=== PATIENT | female | born 1940 | race Caucasian/White ===

== ENCOUNTER → 2017-04-09 | Outpatient (CLI) | payer OTHER ==
[~2017-04-09] MED LIST: ADULT LOW DOSE81 MG PO; ANASTROZOLE1 MG PO; DOXYCYCLINE 10100 MG PO; IPRAT-ALBUT 0.5-3 ML INH; MUCINEX600 MG PO; NEURONTIN 400400 M1 PO; NICOTINE TRANSD21 M1 TRANSDERM; PLAVIX 75 MG TA75 M1 PO; PREDNISONE 10 M10 M1 PO; PREMARIN0.625 MG PO; PRILOSEC 20 MG20 MG PO; PRINIVIL40 MG PO; VERAPAMIL E.R240 M1 PO; VERELAN360 MG PO; ZOCOR 20 MG TAB20 M1 PO; ZOLPIDEM TARTRA10 MG PO; ZOSYN 3.373.375 GM/1 IV
== END ==
LOC: HYPER 04-02 06:57
DX: L89.613 Pressure ulcer of right heel, stage 3 (principal); L97.511 Non-pressure chronic ulcer of other part of right foot limited to breakdown of skin; I70.233 Atherosclerosis of native arteries of right leg with ulceration of ankle; L97.311 Non-pressure chronic ulcer of right ankle limited to breakdown of skin; I70.235 Atherosclerosis of native arteries of right leg with ulceration of other part of foot; I73.9 Peripheral vascular disease, unspecified; I10 Essential (primary) hypertension; E78.5 Hyperlipidemia, unspecified; G62.89 Other specified polyneuropathies; Z72.89 Other problems related to lifestyle; F17.200 Nicotine dependence, unspecified, uncomplicated; Z85.41 Personal history of malignant neoplasm of cervix uteri; Z90.710 Acquired absence of both cervix and uterus

== ENCOUNTER → 2017-05-28 | Outpatient (CLI) | payer OTHER ==
[~2017-05-28] MED LIST changes: -ADULT LOW DOSE81 MG PO; -ANASTROZOLE1 MG PO; -DOXYCYCLINE 10100 MG PO; -IPRAT-ALBUT 0.5-3 ML INH; -MUCINEX600 MG PO; -NEURONTIN 400400 M1 PO; -NICOTINE TRANSD21 M1 TRANSDERM; -PLAVIX 75 MG TA75 M1 PO; -PREDNISONE 10 M10 M1 PO; -ZOLPIDEM TARTRA10 MG PO; -ZOSYN 3.373.375 GM/1 IV
== END ==
LOC: HYPER 07:58
DX: I70.235 Atherosclerosis of native arteries of right leg with ulceration of other part of foot (principal); L97.511 Non-pressure chronic ulcer of other part of right foot limited to breakdown of skin; L89.613 Pressure ulcer of right heel, stage 3; I10 Essential (primary) hypertension; L84 Corns and callosities; E78.5 Hyperlipidemia, unspecified; G62.89 Other specified polyneuropathies; F17.200 Nicotine dependence, unspecified, uncomplicated; Z90.710 Acquired absence of both cervix and uterus; Z85.89 Personal history of malignant neoplasm of other organs and systems

== ENCOUNTER 2017-08-09 11:41 | Inpatient (IN) | payer OTHER ==
[~2017-08-09] VITALS: Ht 162.6 cm; Wt 78.0 kg
--- NOTE | ~2017-08-09 | EKG ---
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: MABEL : 1940 Requested By: Michael Figueroa Order Number: [id number] MD: Juvenal Marin Measurements Intervals [place] Rate: 138 P: 61 ND: 145 QRS: 0 QRSD: 84 T: 94 QT: 269 QTc: 408 Interpretive Statements Sinus tachycardia Low voltage, extremity and precordial leads Baseline wander in lead(s) V3,V6 No previous ECG available for comparison Electronically Signed On 08-12-2017 9:10:10 CDT by Juvenal Marin [email or web address] <ELECTRONICALLY SIGNED> By: Juvenal Marin MD, [facility] 08/12/17909 29 29 Juvenal Marin MD, [facility] /EPI
--- NOTE | ~2017-08-09 | HC ---
[facility] [place] [address] CONSULTATION Name: DHEERAJ DOUGLASS Room #: 356-P ADM IN ..#: [id number] Admission: 08/09/17 Attend Phys: Michael Figueroa MD Discharge: Date of : 39 Report #: [id number] THIS REPORT FOR: //name// CC: Michael Dlaey DATE OF SERVICE: 08/12/2017 PERSONAL PHYSICIAN: Dr. Figueroa. CHIEF COMPLAINT: Left foot surgical wound. HISTORY OF PRESENT ILLNESS: This is a 77-year-old white female with a history of longstanding peripheral arterial disease, who continues to smoke, who 3 days prior to the hospitalization was complaining of increased erythema, warmth and pain in her left first metatarsophalangeal region. The patient presented to the Emergency Department and was noted to have a possible soft tissue abscess there and underwent orthopedic evaluation and subsequent I and D of the left first metatarsophalangeal joint. The patient had this closed primarily. The patient is currently on IV antibiotics. We have now been asked to follow the patient for the surgical wound. The patient denies any other associated wounds at this time. The patient states, however, that she still is continuing to smoke. Her daughter who is in the room is extremely concerned about this and she and I had a prolonged talk greater than 30 minutes in regards to her mother's care and trying to get her off the nicotine at this time. PAST MEDICAL HISTORY: Significant for longstanding history of peripheral arterial disease, cancer of the cervix requiring hysterectomy. She has history of hyperlipidemia and hypertension, hypercholesterolemia, gastroesophageal reflux disease. CURRENT MEDICATIONS: Multiple. I reviewed the patient's medication list. DRUG ALLERGIES: CODEINE. SOCIAL HISTORY: The patient still smokes, which she initially stated was a half a pack of cigarettes daily; however, the daughter states it is probably closer to 1 to 1-1/2 pack of cigarettes daily. The patient drinks at least 1-2 drinks daily. FAMILY HISTORY: Not pertinent to current medical condition. REVIEW OF SYSTEMS: CONSTITUTIONAL: The patient denies actual fevers or chills. NEUROLOGIC: The patient denies numbness, tingling, weakness in arms or legs. EYES: No complaints. [address] [address] CONSULTATION Name: DHEERAJ DOUGLASS Room #: 356-P [facility] IN M.R.#: [id number] Admission: 08/09/17 Attend Phys: Michael Figueroa MD Discharge: Date of : 39 Report #: [id number] ENT: No complaints. CARDIAC: The patient denies chest pain, palpitations or peripheral edema. RESPIRATORY: The patient denies shortness of breath, cough or wheezes. GASTROINTESTINAL: The patient denies nausea, vomiting, abdominal pain. GENITOURINARY: The patient denies urgency or frequency. MUSCULOSKELETAL: The patient has complaints of pain in her left first metatarsophalangeal region. SKIN: There is surgical wound on the left first metatarsophalangeal joint region. PHYSICAL EXAMINATION: VITAL SIGNS: Temperature 36.5, pulse 87, respirations 16, BP 147/66. GENERAL: This is an alert and oriented x 3, well-developed white female who is in no obvious distress. HEENT: Normocephalic, atraumatic. Mucous membranes are somewhat dry. Pupils are round. Sclerae white. NECK: Supple, without JVD. LUNGS: Clear. HEART: Regular. ABDOMEN: Soft, nontender. EXTREMITIES: The patient moves all extremities without difficulty. Evaluation of the bilateral lower extremity reveals 2+ dorsalis pedis and posterior tibial pulse. Please note the patient is now status post angiography with stent placement per Dr. Go. Both feet are warm. Surgical wound on the left first metatarsophalangeal joint region is clean, dry and intact. There is minimal serosanguineous drainage without odor, no signs of overt cellulitis. No other associated ulcerations are noted. Bilateral heels are intact. NEUROLOGIC: Cranial nerves 2-12 grossly intact. Motor and sensory grossly intact. LABORATORY VALUES: White count 8.6, hemoglobin 9.0, albumin is 2.9 and prealbumin is 12.7. IMPRESSION: 1. Surgical wound, left first metatarsophalangeal joint secondary to abscess, overall stable. 2. Peripheral arterial disease. 3. Nicotine abuse. 4. Protein-calorie malnutrition -- moderate with an albumin of 2.9. 5. Generalized debility. PLAN: At this time, we will start Aquacel Ag to the wound site, cover with an ABD and Kerlix and Larry, change this 3 times weekly. We will have her heels elevated with pillows off the bed to protect for any type of heel ulcerations. We will make sure we maximize the patient's protein supplementation for healing. We will utilize physical and occupational therapy as the patient is able for [address] [address] CONSULTATION Name: DHEERAJ DOUGLASS Room #: 356-P ADM IN M.R.#: [id number] Admission: 08/09/17 Attend Phys: Michael Figueroa MD Discharge: Date of : 39 Report #: [id number] strengthening. We will continue all other current medications and continue to follow the patient. I appreciate the ability to consult. <ELECTRONICALLY SIGNED> By: Romulo Chou MD 08/16/17 0807 1330 1842 Romulo Chou MD /nt
--- NOTE | ~2017-08-09 | HC ---
[facility] [place] [address] CONSULTATION Name: DHEERAJ DOUGLASS Room #: 356-P [facility] IN ..#: [id number] Admission: 08/09/17 Attend Phys: Michael Figueroa MD Discharge: Date of : 39 Report #: [id number] THIS REPORT FOR: //name// CC: Michael Daley TYPE OF REPORT: Infectious diseases consultation. REASON FOR CONSULTATION: I was asked to evaluate concerning sepsis and right foot infection. HISTORY OF PRESENT ILLNESS: The patient is a 77-year old with underlying peripheral vascular disease. She has had a callus to the plantar aspect of her left foot under the metatarsal since the first of the year. She did seek wound care evaluation. Treated topically and it improved. She still has a callus to this area. She also has peripheral vascular disease and has multiple stents in her lower extremities. In April, she had a stent placed in the proximal thigh. She did return in followup but was unable to see Dr. Go about 3 weeks ago. She has not followed up since. She is a smoker of cigarettes. Three days ago, she noticed increased pain, swelling, erythema involving her right foot. Pain mostly is over the first metatarsal head plantar surface. No drainage. No documented fever or chills. She has been generally weak. PAST MEDICAL HISTORY: Cervical cancer, hypertension, peripheral neuropathy, basal cell skin cancer, hyperlipidemia, gastroesophageal reflux and peripheral vascular disease. ALLERGIES: CODEINE. MEDICATIONS: Plavix, Zocor, verapamil and lisinopril. FAMILY HISTORY: Noncontributory. SOCIAL HISTORY: Smoker of cigarettes daily alcohol intake. REVIEW OF SYSTEMS: Denies any headache, cough, sputum, nausea, vomiting, diarrhea, dysuria or frequency. PHYSICAL EXAMINATION: VITAL SIGNS: Temperature is 100.5, pulse 94 and blood pressure 113/38. She was on room air 95% saturation. GENERAL: She is alert and cooperative. HEENT: Unremarkable. NECK: Supple. CHEST: Clear. HEART: Regular, without murmur. ABDOMEN: Soft and nontender. No pulsatile masses. No hepatosplenomegaly. [facility] [address] [place] [address] CONSULTATION Name: DHEERAJ DOUGLASS Room #: 356-P [facility] IN M.R.#: [id number] Admission: 08/09/17 Attend Phys: Michael Figueroa MD Discharge: Date of : 39 Report #: [id number] EXTREMITIES: Pulses in the groins were normal. She had decreased pulses in the left popliteal and feet. She had marked tenderness under her callus to the plantar aspect of her first metatarsal head on the left. This was exquisitely tender. She had some fluctuance. Erythema extended dorsally to involve the whole foot and ankle and the distal aspect of her lower leg. She had full movement in the leg and foot. LABORATORY DATA: Lactate 1.5. CRP 325. Sodium 134, potassium 3.5, bicarbonate 29 and creatinine 1.2. Liver function test normal. Albumin at 2.8. Hemoglobin 9.7; WBC 18 and platelet count 195,000. Differential: 83% segs, 7% lymphs and 8% monocytes. RADIOLOGICAL DATA: X-ray of her foot showed soft tissue swelling with gas in the soft tissues involving the first metatarsal region. IMPRESSION: A 77-year old with soft tissue infection of the left foot with associated gas suspecting a possible necrotizing soft tissue infection. She also has peripheral vascular disease and I am concerned about the status of her stent. She has leukocytosis. RECOMMENDATIONS: Have obtained blood cultures. We will have Orthopedic Surgery evaluate for surgical debridement. She will remain n.p.o. Give IV fluids. Image her arterial system by ultrasound and arrange for MRI scan. We will use combination antimicrobial therapy. I have discussed with attending and nursing staff at the bedside. <ELECTRONICALLY SIGNED> By: Khari Estrada MD 08/10/17 1043 1454 2118 Khari Estrada MD /nt
--- NOTE | ~2017-08-09 | O ---
[facility] [place] [address] OPERATIVE REPORT Name: DHEERAJ DOUGLASS Room #: 356-P [facility] IN ..#: [id number] Admission: 08/09/17 Attend Phys: Michael Figueroa MD Discharge: Date of : 39 Report #: [id number] THIS REPORT FOR: //name// CC: Michael Daley DATE OF SERVICE: 08/10/2017 PREOPERATIVE DIAGNOSIS: Left great toe abscess, possible septic metatarsophalangeal joint. POSTOPERATIVE DIAGNOSIS: Left great toe soft tissue abscess. PROCEDURE: I and D, left great toe including the first MTP joint. SURGEON: Leobardo Smith MD. SENIOR SECURITY ENGINEER: Marie Johnson PA-C. ANESTHESIA: LMA. TOURNIQUET TIME: Approximately 18 minutes. COMPLICATIONS: None. SPECIMENS: Cultures were sent x 2. CONDITION UPON LEAVING THE OPERATING ROOM: Stable. INDICATIONS FOR PROCEDURE: The patient is a 77-year-old female who has had swelling and erythema of her left great toe for about 2 days. She presented to the ER with x-ray showing gas in the soft tissues and signs of infection of the left great toe. She had an MRI scan showing her to have a soft tissue abscess as well as effusion of the first MTP joint. After discussion with her, she elected for I and D of the left great toe. DESCRIPTION OF PROCEDURE: Risks, benefits, alternatives, complications were discussed in detail with the patient including but not limited to risk of anesthesia, risk of damage to nerves, arteries, blood vessels, risk for continued infection, bleeding and need for reoperation. Informed consent was obtained from the patient. Left foot was appropriately marked in the preoperative holding area. She was already on preoperative Zosyn and vancomycin. She was brought to the operating room and placed in the supine position on the operating room table. LMA anesthesia was induced without complication. Tourniquet was placed on the left calf. Left lower extremity was prepped and draped in normal sterile fashion. Timeout was performed properly [address] [address] OPERATIVE REPORT Name: DHEERAJ DOUGLASS Room #: 356-P [facility] IN .R.#: [id number] Admission: 08/09/17 Attend Phys: Michael Figueroa MD Discharge: Date of : 39 Report #: [id number] identifying the patient and procedure as well as the instrumentation. All in the operating room were in agreement. Left lower extremity was elevated, tourniquet was inflated. Tourniquet time 18 minutes. A direct medial approach to the great toe was made with a 10 blade through the skin. Upon entering the deep tissues, a large amount of purulence was expressed coming from the plantar surface of the foot. Cultures of this were taken x 2. This is foul smelling. The hemostat was used to open up any loculations, and these were broken apart. A 15 blade was then used to open the first MTP joint and upon opening this, there appeared to be normal appearing joint fluid. The foot, plantar surface of the toe was then thoroughly irrigated with normal saline. There was some epidermolysis of the plantar surface of the great toe, which was peeled off and while this was peeled, the ulceration on the plantar surface was removed, leaving a hole directly communicating into the area of the abscess. After thorough irrigation, the incision was closed with 3-0 nylon. Soft dressing of Xeroform, 4 x 4s, Webril, Larry wrap were applied. The patient tolerated this procedure well and went to the recovery room under care of Anesthesia postoperatively. <ELECTRONICALLY SIGNED> By: Leobardo Smith MD 08/12/17 1505 0941 1054 Leobardo Smith MD /nt
[2017-08-09 11:42] VITALS: BP 113/38
[2017-08-09] MEDS ORDERED: DOXYCYCLINE 10100 MG PO (13:03)
[2017-08-09] MEDS ORDERED: PLAVIX 75 MG TA75 M1 PO (13:11)
[2017-08-09 13:38] LABS: BASOPHILS 0.6 % (0.0-2.0); HEMATOCRIT 29.2 % (37.0-47.0); HEMOGLOBIN 9.7 gm/dL (12.0-15.0); LYMPHOCYTES 7.5 % (24.0-44.0); MCH 26.5 pg (26.0-34.0); MCHC 33.1 g/dL (28.0-37.0); MONOCYTES 8.1 % (1.0-8.0); PLATELET COUNT 195 thou/uL (150-400); POLYS 83.8 % (36.0-66.0); RBC 3.66 mil/uL (4.20-5.00); RDW 17.8 % (10.5-14.5)
[2017-08-09 13:45] LABS: CALCIUM 8.3 mg/dL (8.5-10.1); CREATININE 1.2 mg/dL (0.6-1.0); POTASSIUM 3.5 mmol/L (3.5-5.1)
[2017-08-09 13:50] LABS: ALBUMIN 2.8 g/dL (3.4-5.0); TOTAL BILIRUBIN 0.5 mg/dL (<0.1-1.0); TOTAL PROTEIN 6.4 g/dL (6.4-8.2)
[2017-08-09 14:28] VITALS: BP 113/38
[2017-08-09 15:32] VITALS: BP 106/70
[2017-08-09 15:46] VITALS: BP 107/47
[2017-08-09 15:50] LABS: ALBUMIN 2.9 g/dL (3.4-5.0); TOTAL PROTEIN 6.6 g/dL (6.4-8.2)
[2017-08-09 16:18] LABS: TSH 0.851 uIU/mL (0.358-3.740)
[2017-08-09] MEDS ORDERED: ZOLPIDEM TARTRA10 MG PO (17:32)
[2017-08-09] MEDS ORDERED: NEURONTIN 400400 M1 PO (17:34)
[2017-08-09 19:20] VITALS: BP 103/30
[2017-08-09 19:51] LABS: BE(vivo) -3.6 mmol/L (-2 to +3); HCO3 18.8 mmol/L (22.0-26.0); PCO2 25.7 mmHg (35.0-45.0); PO2 77.7 mmHg (80.0-100.0); pH 7.482 (7.360-7.450); sO2 96.5 % (92.0-98.0)
[2017-08-09 22:27] VITALS: BP 100/39
[2017-08-10] VITALS (9 sets, daily range): BP systolic 86–137; BP diastolic 40–92
[2017-08-10 07:23] LABS: ABSOLUTE NEUTROPHILS 8.8 thou/uL (1.4-8.2); BASOPHILS 0.1 % (0.0-2.0); HEMATOCRIT 27.1 % (37.0-47.0); HEMOGLOBIN 9.1 gm/dL (12.0-15.0); LYMPHOCYTES 1.5 % (24.0-44.0); MCHC 33.7 g/dL (28.0-37.0); PLATELET COUNT 145 thou/uL (150-400); POLYS 97.4 % (36.0-66.0); RBC 3.38 mil/uL (4.20-5.00); RDW 17.4 % (10.5-14.5); WBC 9.1 thou/uL (4.0-11.0)
[2017-08-10 07:37] LABS: CALCIUM 7.4 mg/dL (8.5-10.1); CREATININE 1.4 mg/dL (0.6-1.0); MAGNESIUM 1.6 mg/dL (1.8-2.4); POTASSIUM 3.6 mmol/L (3.5-5.1)
[2017-08-11 01:20] VITALS: BP 119/62
[2017-08-11 03:30] VITALS: BP 134/56
[2017-08-11 04:14] LABS: ABSOLUTE NEUTROPHILS 4.4 thou/uL (1.4-8.2); BASOPHILS 0.4 % (0.0-2.0); EOSINOPHILS 0.3 % (0.0-3.0); HEMATOCRIT 31.7 % (37.0-47.0); HEMOGLOBIN 10.3 gm/dL (12.0-15.0); LYMPHOCYTES 19.1 % (24.0-44.0); MCH 26.5 pg (26.0-34.0); MCHC 32.6 g/dL (28.0-37.0); MCV 81.2 fL (80.0-100.0); MONOCYTES 8.7 % (1.0-8.0); PLATELET COUNT 136 thou/uL (150-400); POLYS 71.5 % (36.0-66.0); RDW 17.5 % (10.5-14.5); WBC 6.1 thou/uL (4.0-11.0)
[2017-08-11 04:25] LABS: CALCIUM 7.3 mg/dL (8.5-10.1); CREATININE 1.2 mg/dL (0.6-1.0); MAGNESIUM 1.5 mg/dL (1.8-2.4); POTASSIUM 3.4 mmol/L (3.5-5.1)
[2017-08-11 07:29] VITALS: BP 141/55
[2017-08-11 11:55] VITALS: BP 135/53
[2017-08-11 16:00] VITALS: BP 146/66
[2017-08-11 19:58] VITALS: BP 156/72
[2017-08-12 00:49] VITALS: BP 145/65
[2017-08-12 05:05] VITALS: BP 139/63
[2017-08-12 05:48] LABS: HEMATOCRIT 27.5 % (37.0-47.0); MCH 26.1 pg (26.0-34.0); MCHC 32.6 g/dL (28.0-37.0); RBC 3.44 mil/uL (4.20-5.00); RDW 17.2 % (10.5-14.5); WBC 8.6 thou/uL (4.0-11.0)
[2017-08-12 06:08] LABS: CALCIUM 7.6 mg/dL (8.5-10.1); CREATININE 0.8 mg/dL (0.6-1.0); MAGNESIUM 1.8 mg/dL (1.8-2.4); POTASSIUM 3.5 mmol/L (3.5-5.1)
[2017-08-12 07:06] VITALS: BP 143/58
[2017-08-12 16:08] VITALS: BP 127/64
[2017-08-12 20:40] VITALS: BP 137/47
[2017-08-13 00:15] VITALS: BP 131/53
[2017-08-13 05:00] VITALS: BP 129/58
[2017-08-13 05:50] LABS: HEMATOCRIT 23.8 % (37.0-47.0); HEMOGLOBIN 8.3 gm/dL (12.0-15.0); MCH 27.3 pg (26.0-34.0); MCHC 34.8 g/dL (28.0-37.0); MCV 78.3 fL (80.0-100.0); RBC 3.04 mil/uL (4.20-5.00); RDW 17.9 % (10.5-14.5); WBC 9.4 thou/uL (4.0-11.0)
[2017-08-13 05:59] LABS: CALCIUM 7.7 mg/dL (8.5-10.1); CREATININE 0.8 mg/dL (0.6-1.0); MAGNESIUM 1.7 mg/dL (1.8-2.4); POTASSIUM 3.3 mmol/L (3.5-5.1)
[2017-08-13 07:58] VITALS: BP 132/56
[2017-08-13 11:36] VITALS: BP 126/54
[2017-08-13 15:14] VITALS: BP 133/56
[2017-08-13 19:27] VITALS: BP 136/47
[2017-08-14 03:09] VITALS: BP 136/47
[2017-08-14 08:29] VITALS: BP 147/66
[2017-08-14 13:02] VITALS: BP 135/49
[2017-08-14 17:34] VITALS: BP 141/61
[2017-08-14 20:00] VITALS: BP 149/51
[2017-08-15 04:15] VITALS: BP 137/62
[2017-08-15 05:38] LABS: HEMATOCRIT 23.3 % (37.0-47.0); HEMOGLOBIN 7.7 gm/dL (12.0-15.0); MCH 26.1 pg (26.0-34.0); MCHC 33.2 g/dL (28.0-37.0); MCV 78.6 fL (80.0-100.0); RBC 2.96 mil/uL (4.20-5.00); WBC 14.6 thou/uL (4.0-11.0)
[2017-08-15 06:04] LABS: CALCIUM 8.2 mg/dL (8.5-10.1); POTASSIUM 3.2 mmol/L (3.5-5.1)
[2017-08-15 09:40] VITALS: BP 161/78
[2017-08-15 12:21] VITALS: BP 143/80
[2017-08-15] MEDS ORDERED: ANASTROZOLE1 MG PO (16:22)
[2017-08-15 17:19] VITALS: BP 172/74
[2017-08-15 19:55] VITALS: BP 167/80
[2017-08-16 07:02] LABS: HEMOGLOBIN 7.8 gm/dL (12.0-15.0); MCH 26.1 pg (26.0-34.0); MCHC 32.4 g/dL (28.0-37.0); MCV 80.7 fL (80.0-100.0); RBC 2.97 mil/uL (4.20-5.00); RDW 18.1 % (10.5-14.5); WBC 14.6 thou/uL (4.0-11.0)
[2017-08-16 07:12] LABS: CALCIUM 8.3 mg/dL (8.5-10.1); CREATININE 0.9 mg/dL (0.6-1.0); POTASSIUM 3.4 mmol/L (3.5-5.1)
[2017-08-16 07:50] VITALS: BP 143/68
[2017-08-16 12:41] VITALS: BP 150/66
[2017-08-16] MEDS ORDERED: IPRAT-ALBUT 0.5-3 ML INH (14:47)
[2017-08-16] MEDS ORDERED: ZOSYN 3.373.375 GM/1 IV (14:47)
[2017-08-16] MEDS ORDERED: ADULT LOW DOSE81 MG PO (14:48)
[2017-08-16] MEDS ORDERED: NICOTINE TRANSD21 M1 TRANSDERM (14:48)
[2017-08-16] MEDS ORDERED: PREDNISONE 10 M10 M1 PO (14:49)
[2017-08-16] MEDS ORDERED: MUCINEX600 MG PO (14:49)
[2017-08-16 16:03] VITALS: BP 160/51
== END 2017-08-16 17:14 | DRG 853 ==
LOC: ER 11:41 → EROBS 13:55 → 3W 13:55
PROVIDERS: Emergency Medicine; Hospitalist; Internal Medicine; Specialist
DX: A41.9 Sepsis, unspecified organism (principal); M72.6 Necrotizing fasciitis; E44.0 Moderate protein-calorie malnutrition; L02.612 Cutaneous abscess of left foot; L03.116 Cellulitis of left lower limb; M00.9 Pyogenic arthritis, unspecified; N17.9 Acute kidney failure, unspecified; E87.1 Hypo-osmolality and hyponatremia; J44.1 Chronic obstructive pulmonary disease with (acute) exacerbation; I10 Essential (primary) hypertension; G62.9 Polyneuropathy, unspecified; E78.00 Pure hypercholesterolemia, unspecified; K21.9 Gastro-esophageal reflux disease without esophagitis; E78.5 Hyperlipidemia, unspecified; F17.210 Nicotine dependence, cigarettes, uncomplicated; R19.7 Diarrhea, unspecified; E87.6 Hypokalemia; E83.42 Hypomagnesemia; Z79.82 Long term (current) use of aspirin; Z79.899 Other long term (current) drug therapy; Z85.41 Personal history of malignant neoplasm of cervix uteri; Z88.6 Allergy status to analgesic agent; Z90.710 Acquired absence of both cervix and uterus; Z68.29 Body mass index [BMI] 29.0-29.9, adult
CPT/HCPCS: 10779; 27000; 50101; 50386; 53078; 56525; 57091; 70005

== ENCOUNTER → 2017-09-10 | Outpatient (CLI) | payer OTHER ==
[~2017-09-10] MED LIST changes: +ADULT LOW DOSE81 MG PO; +ANASTROZOLE1 MG PO; +DOXYCYCLINE 10100 MG PO; +IPRAT-ALBUT 0.5-3 ML INH; +MUCINEX600 MG PO; +NEURONTIN 400400 M1 PO; +NICOTINE TRANSD21 M1 TRANSDERM; +PLAVIX 75 MG TA75 M1 PO; +PREDNISONE 10 M10 M1 PO; +ZOLPIDEM TARTRA10 MG PO; +ZOSYN 3.373.375 GM/1 IV
== END ==
LOC: HYPER
DX: T81.89XA Other complications of procedures, not elsewhere classified, initial encounter (principal); I10 Essential (primary) hypertension; E78.5 Hyperlipidemia, unspecified; L84 Corns and callosities; G62.89 Other specified polyneuropathies; F17.200 Nicotine dependence, unspecified, uncomplicated; Z85.89 Personal history of malignant neoplasm of other organs and systems; Z90.710 Acquired absence of both cervix and uterus; Z98.49 Cataract extraction status, unspecified eye; Y92.89 Other specified places as the place of occurrence of the external cause; Y83.8 Other surgical procedures as the cause of abnormal reaction of the patient, or of later complication, without mention of misadventure at the time of the procedure

== ENCOUNTER → 2017-11-04 | Outpatient (CLI) | payer OTHER | LOC: HYPER 07:17 | DX: T81.31XD Disruption of external operation (surgical) wound, not elsewhere classified, subsequent encounter (principal); L84 Corns and callosities; I10 Essential (primary) hypertension; E78.5 Hyperlipidemia, unspecified; G62.89 Other specified polyneuropathies; F17.200 Nicotine dependence, unspecified, uncomplicated; Z85.41 Personal history of malignant neoplasm of cervix uteri; Y83.8 Other surgical procedures as the cause of abnormal reaction of the patient, or of later complication, without mention of misadventure at the time of the procedure ==

== ENCOUNTER → 2017-11-19 | Outpatient (CLI) | payer OTHER | LOC: HYPER 07:01 | DX: T81.31XD Disruption of external operation (surgical) wound, not elsewhere classified, subsequent encounter (principal); L84 Corns and callosities; E78.5 Hyperlipidemia, unspecified; G62.89 Other specified polyneuropathies; I10 Essential (primary) hypertension; F17.200 Nicotine dependence, unspecified, uncomplicated; Z85.41 Personal history of malignant neoplasm of cervix uteri; Y83.8 Other surgical procedures as the cause of abnormal reaction of the patient, or of later complication, without mention of misadventure at the time of the procedure ==

== ENCOUNTER 2018-01-28 01:00 | Emergency (ER) | payer OTHER ==
[~2018-01-28] VITALS: Ht 162.6 cm; Wt 68.5 kg
[2018-01-28] MEDS ORDERED: LASIX 20 MG TAB20 MG PO (01:23)
[2018-01-28] MEDS ORDERED: LEXAPRO 10 MG T10 M2 PO (01:23)
[2018-01-28 03:00] VITALS: BP 127/49
== END 2018-01-28 03:41 | disposition home or self-care (01) ==
LOC: ER 01:00
DX: S01.01XA Laceration without foreign body of scalp, initial encounter (principal); I10 Essential (primary) hypertension; E78.00 Pure hypercholesterolemia, unspecified; K21.9 Gastro-esophageal reflux disease without esophagitis; Z85.828 Personal history of other malignant neoplasm of skin; Z85.41 Personal history of malignant neoplasm of cervix uteri; Z88.5 Allergy status to narcotic agent; W10.9XXA Fall (on) (from) unspecified stairs and steps, initial encounter; Y93.89 Activity, other specified; Y92.89 Other specified places as the place of occurrence of the external cause; Y99.8 Other external cause status

== ENCOUNTER → 2018-07-21 | Outpatient (CLI) | payer OTHER ==
[~2018-07-21] MED LIST changes: +LASIX 20 MG TAB20 MG PO; +LEXAPRO 10 MG T10 M2 PO
== END ==
LOC: HYPER 06:52
DX: L97.521 Non-pressure chronic ulcer of other part of left foot limited to breakdown of skin (principal); L84 Corns and callosities; I10 Essential (primary) hypertension; G47.00 Insomnia, unspecified; G60.3 Idiopathic progressive neuropathy; E78.5 Hyperlipidemia, unspecified; F17.200 Nicotine dependence, unspecified, uncomplicated; Z85.41 Personal history of malignant neoplasm of cervix uteri

== ENCOUNTER → 2018-07-30 | Outpatient (CLI) | payer OTHER | LOC: HYPER 06:52 | DX: L97.528 Non-pressure chronic ulcer of other part of left foot with other specified severity (principal); G60.3 Idiopathic progressive neuropathy; I10 Essential (primary) hypertension; E78.5 Hyperlipidemia, unspecified; F17.200 Nicotine dependence, unspecified, uncomplicated; Z85.41 Personal history of malignant neoplasm of cervix uteri; Z79.01 Long term (current) use of anticoagulants ==

== ENCOUNTER → 2019-07-03 | Outpatient (CLI) | payer OTHER | LOC: SJCVCIMAG 09:30 | DX: I65.23 Occlusion and stenosis of bilateral carotid arteries (principal); I70.203 Unspecified atherosclerosis of native arteries of extremities, bilateral legs; I10 Essential (primary) hypertension; E78.00 Pure hypercholesterolemia, unspecified; Z95.828 Presence of other vascular implants and grafts ==

== ENCOUNTER → 2019-07-13 | Outpatient (CLI) | payer OTHER ==
[~2019-07-13] VITALS: Ht 162.6 cm; Wt 70.3 kg
[~2019-07-13] MED LIST changes: +ALPRAZOLAM 0.0.25 M1 PO; +COMBIVENT INH; +DULOXETINE HCL60 MG PO; +MYRBETRIQ25 MG PO; +PERCOCET 5-3251 EACH PO; +ROSUVASTATIN CA20 MG PO
[2019-07-13 09:27] LABS: HEMATOCRIT 38.9 % (37.0-47.0); HEMOGLOBIN 12.8 gm/dL (12.0-15.0); MCH 30.1 pg (26.0-34.0); MCV 91.3 fL (80.0-100.0); RBC 4.26 mil/uL (4.20-5.00); RDW 14.1 % (10.5-14.5); WBC 8.6 thou/uL (4.0-11.0)
[2019-07-13 09:41] LABS: CALCIUM 8.9 mg/dL (8.5-10.1); POTASSIUM 4.2 mmol/L (3.5-5.1)
[2019-07-13 09:46] VITALS: BP 123/54
== END | disposition home or self-care (01) ==
LOC: CATH 08:06
PROVIDERS: Nuclear Medicine Nuclear Cardiology
DX: I70.213 Atherosclerosis of native arteries of extremities with intermittent claudication, bilateral legs (principal); T82.856A Stenosis of peripheral vascular stent, initial encounter; I70.1 Atherosclerosis of renal artery; I10 Essential (primary) hypertension; I70.0 Atherosclerosis of aorta; E78.00 Pure hypercholesterolemia, unspecified; G62.9 Polyneuropathy, unspecified; K21.9 Gastro-esophageal reflux disease without esophagitis; Z98.890 Other specified postprocedural states; Z79.899 Other long term (current) drug therapy; Z85.828 Personal history of other malignant neoplasm of skin; Z87.891 Personal history of nicotine dependence; Z90.710 Acquired absence of both cervix and uterus; Z82.49 Family history of ischemic heart disease and other diseases of the circulatory system; Z85.3 Personal history of malignant neoplasm of breast; Z88.8 Allergy status to other drugs, medicaments and biological substances

== ENCOUNTER → 2019-07-20 | Outpatient (CLI) | payer OTHER ==
[~2019-07-20] VITALS: Ht 162.6 cm; Wt 70.3 kg
[~2019-07-20] MED LIST changes: +LIPITOR 20 MG T20 M1 PO; +VITAMIN D-40010 MCG PO
[2019-07-20 07:19] VITALS: BP 121/60
== END | disposition home or self-care (01) ==
LOC: CATH 06:42
PROVIDERS: ATTEND Nuclear Medicine Nuclear Cardiology
DX: I70.213 Atherosclerosis of native arteries of extremities with intermittent claudication, bilateral legs (principal); I70.1 Atherosclerosis of renal artery; I25.10 Atherosclerotic heart disease of native coronary artery without angina pectoris; I10 Essential (primary) hypertension; E78.00 Pure hypercholesterolemia, unspecified; K21.9 Gastro-esophageal reflux disease without esophagitis; Z85.828 Personal history of other malignant neoplasm of skin; Z90.710 Acquired absence of both cervix and uterus; Z98.890 Other specified postprocedural states; Z79.899 Other long term (current) drug therapy; Z85.41 Personal history of malignant neoplasm of cervix uteri; Z88.8 Allergy status to other drugs, medicaments and biological substances

== ENCOUNTER → 2019-08-03 | Outpatient (CLI) | payer OTHER ==
[~2019-08-03] MED LIST changes: +CALCIUM 600 +1 EA14 PO; +CYMBALTA60 MG PO; +DEMADEX20 MG PO; +FISH OIL 1,0001 EAC9 PO; +MULTI VITAMIN1 EACH PO
== END ==
LOC: SJCVC 13:38
PROVIDERS: ATTEND Internal Medicine
DX: I44.0 Atrioventricular block, first degree (principal); I73.9 Peripheral vascular disease, unspecified; I11.0 Hypertensive heart disease with heart failure; I50.32 Chronic diastolic (congestive) heart failure; I65.23 Occlusion and stenosis of bilateral carotid arteries; E78.5 Hyperlipidemia, unspecified; F17.201 Nicotine dependence, unspecified, in remission; E78.00 Pure hypercholesterolemia, unspecified; Z79.899 Other long term (current) drug therapy

== ENCOUNTER → 2019-08-07 | Outpatient (CLI) | payer OTHER ==
[~2019-08-07] MED LIST changes: -CALCIUM 600 +1 EA14 PO; -CYMBALTA60 MG PO; -DEMADEX20 MG PO; -FISH OIL 1,0001 EAC9 PO; -MULTI VITAMIN1 EACH PO
== END ==
LOC: SJCVCIMAG 08-06 14:43
PROVIDERS: ATTEND Internal Medicine
DX: R06.00 Dyspnea, unspecified (principal); J44.9 Chronic obstructive pulmonary disease, unspecified; I10 Essential (primary) hypertension

== ENCOUNTER → 2019-08-24 | Outpatient (CLI) | payer OTHER ==
[~2019-08-24] VITALS: Ht 162.6 cm; Wt 77.1 kg
[~2019-08-24] MED LIST changes: -ANASTROZOLE1 MG PO; +ARIMIDEX1 MG PO; +CALCIUM 600 +1 EA14 PO; +CYMBALTA60 MG PO; +DEMADEX20 MG PO; +FISH OIL 1,0001 EAC9 PO; +GABAPENTIN800 M1 PO; +MULTI VITAMIN1 EACH PO
[2019-08-24 13:59] LABS: ABSOLUTE NEUTROPHILS 6.5 thou/uL (1.4-8.2); BASOPHILS 0.7 % (0.0-2.0); EOSINOPHILS 1.7 % (0.0-3.0); HEMOGLOBIN 11.5 gm/dL (12.0-15.0); LYMPHOCYTES 19.9 % (24.0-44.0); MCH 30.2 pg (26.0-34.0); MCHC 32.9 g/dL (28.0-37.0); MONOCYTES 9.8 % (1.0-8.0); PLATELET COUNT 245 thou/uL (150-400); POLYS 67.9 % (36.0-66.0); RDW 14.8 % (10.5-14.5); WBC 9.5 thou/uL (4.0-11.0)
[2019-08-24 14:02] LABS: URINE BILIRUBIN NEGATIVE (Negative); URINE BLOOD 1+ (Negative); URINE CLARITY CLEAR; URINE COLOR YELLOW; URINE GLUCOSE-RANDOM* NEGATIVE (Negative); URINE KETONES NEGATIVE (Negative); URINE NITRITE-REFLEX NEGATIVE (Negative); URINE PROTEIN (DIPSTICK) NEGATIVE (Negative); URINE UROBILINOGEN 0.2 E.U./dl (0.2-1.0)
[2019-08-24 14:10] LABS: URINE LEUKOCYTES-REFLEX 1+ (Negative)
[2019-08-24 14:11] LABS: SQUAMOUS 0-3 Few /LPF (0-3)
[2019-08-24 14:12] LABS: BACTERIA-REFLEX 1-9 Few /HPF (None Seen); CASTS None Seen /LPF (None Seen); CRYSTALS None Seen /LPF (None Seen); URINE RBC 0-2 Rare /HPF (0-2); URINE WBC-REFLEX 6-15 Few /HPF (0-5)
[2019-08-24 14:21] LABS: ALBUMIN 3.6 g/dL (3.4-5.0); CALCIUM 8.7 mg/dL (8.5-10.1); CREATININE 1.1 mg/dL (0.6-1.0); POTASSIUM 3.9 mmol/L (3.5-5.1); TOTAL BILIRUBIN 0.2 mg/dL (0.2-1.0); TOTAL PROTEIN 5.9 g/dL (6.4-8.2)
[2019-08-24 14:23] LABS: APTT 28.7 Seconds (24.5-32.8); PROTIME 10.4 Seconds (9.3-11.4)
== END ==
LOC: PAC 14:11 → ULTRA 14:11 → PRE 08-27 09:27 → EDSTATUS 08-27 12:27 → PRE 08-27 12:48
PROVIDERS: ATTEND Surgery Vascular Surgery
DX: Z01.812 Encounter for preprocedural laboratory examination (principal); Z11.59 Encounter for screening for other viral diseases; I73.9 Peripheral vascular disease, unspecified

== ENCOUNTER → 2019-09-21 | Outpatient (CLI) | payer OTHER | LOC: LAB 15:10 | PROVIDERS: ATTEND Student in an Organized Health Care Education/Training Program | DX: Z01.812 Encounter for preprocedural laboratory examination (principal); Z11.59 Encounter for screening for other viral diseases ==

== ENCOUNTER 2019-09-24 06:29 | Inpatient (IN) | payer OTHER ==
[2019-09-21 15:54] LABS: ABSOLUTE NEUTROPHILS 5.8 thou/uL (1.4-8.2); BASOPHILS 0.7 % (0.0-2.0); EOSINOPHILS 2.2 % (0.0-3.0); HEMATOCRIT 34.3 % (37.0-47.0); HEMOGLOBIN 11.6 gm/dL (12.0-15.0); LYMPHOCYTES 22.1 % (24.0-44.0); MCH 30.7 pg (26.0-34.0); MCHC 33.9 g/dL (28.0-37.0); MCV 90.5 fL (80.0-100.0); MONOCYTES 11.5 % (1.0-8.0); PLATELET COUNT 239 thou/uL (150-400); POLYS 63.5 % (36.0-66.0); RDW 14.7 % (10.5-14.5); WBC 9.1 thou/uL (4.0-11.0)
[2019-09-21 16:08] LABS: APTT 30.7 Seconds (24.5-32.8); PROTIME 10.4 Seconds (9.3-11.4)
[2019-09-21 16:10] LABS: ALBUMIN 3.7 g/dL (3.4-5.0); CALCIUM 8.9 mg/dL (8.5-10.1); CREATININE 1.2 mg/dL (0.6-1.0); POTASSIUM 3.9 mmol/L (3.5-5.1); TOTAL BILIRUBIN 0.2 mg/dL (0.2-1.0); TOTAL PROTEIN 6.4 g/dL (6.4-8.2)
[2019-09-21 16:16] LABS: URINE BILIRUBIN NEGATIVE (Negative); URINE BLOOD NEGATIVE (Negative); URINE CLARITY CLEAR; URINE COLOR YELLOW; URINE GLUCOSE-RANDOM* NEGATIVE (Negative); URINE KETONES NEGATIVE (Negative); URINE LEUKOCYTES-REFLEX TRACE (Negative); URINE NITRITE-REFLEX NEGATIVE (Negative); URINE PROTEIN (DIPSTICK) NEGATIVE (Negative); URINE SPECIFIC GRAVITY <= 1.005 (1.005-1.035); URINE UROBILINOGEN 0.2 E.U./dl (0.2-1.0)
--- NOTE | 2019-09-22 07:51 | EKG ---
[facility] [place] [address] ELECTROCARDIOGRAM REPORT Name: DHEERAJ DOUGLASS Room #: PRE IN ..#: [id number] Admission: Attend Phys: Oscar Hadley MD Discharge: Date of : 39 Report #: [id number] THIS REPORT FOR: cc: Mera Daley MD, Marie A. MD Lundgren,Juvenal Caicedo MD [facility] ~ THIS REPORT FOR: //name// [facility] Test Date: 2019-09-21 Test Time: 15:46:51 Pat Name: DHEERAJ DOUGLASS Department: Room: Gender: F Interlacer: Samantha PLASCENCIA : 1940 Requested By: Oscar Hadley Order Number: [id number] MD: Juvenal Marin Measurements Intervals [place] Rate: 82 P: 55 IN: 252 QRS: -2 QRSD: 83 T: 40 QT: 371 QTc: 434 Interpretive Statements Sinus rhythm Prolonged IN interval Low voltage, precordial leads Compared to ECG 08/09/2017 19:30:03 First degree AV block now present Sinus tachycardia no longer present Electronically Signed On 09-22-2019 7:50:57 CDT by Juvenal Marin [email or web address] <ELECTRONICALLY SIGNED> By: Juvenal Marin MD, [facility] 09/22/19 0750 1546 1546 Juvenal Marin MD, [facility] /EPI
[~2019-09-24] VITALS: Ht 162.6 cm; Wt 87.1 kg
[2019-09-24] VITALS (25 sets, daily range): BP systolic 83–132; BP diastolic 35–60
--- NOTE | 2019-09-24 17:49 | NUR ---
PT ARRIVED ON THE UNIT @ 1329, WITH THE ASSIST OF TWO RIGGER UP'S. PT ARRIVED ON THE UNIT OF CARDENE @ 10, L RAD ART LINE. PAT @ BEDSIDE @ 1335, NO NEW ORDERS RECIEVED. DR BARKSDALE @ BEDSIDE @ 1415 TO SEE PT, NO NEW ORDERS RECIEVED. RN ABLE TO TITRATE OFF CARDENE, BP SUSTAINING 110/60'S. 2/2 PULSES. WOUND VAC- ULTA TO THE LEFT FEM AREA. WILL CONT TO MONITOR
--- NOTE | 2019-09-24 22:20 | NUR ---
ASSUMED CARE OF PATIENT AT 1900. BLOOD PRESSURE VERY LABILE, CARDINE TITRATED TO TREAT. DR BRAVO ON THE UNIT, NO NEW ORDERS. PATIENT RESTING IN BED AT THIS TIME.
[2019-09-25] VITALS (15 sets, daily range): BP systolic 83–142; BP diastolic 35–52
[2019-09-25 05:08] LABS: HEMATOCRIT 29.5 % (37.0-47.0); HEMOGLOBIN 9.7 gm/dL (12.0-15.0); MCH 30.3 pg (26.0-34.0); MCV 91.8 fL (80.0-100.0); RBC 3.22 mil/uL (4.20-5.00); RDW 14.5 % (10.5-14.5); WBC 18.3 thou/uL (4.0-11.0)
[2019-09-25 05:43] LABS: CALCIUM 7.7 mg/dL (8.5-10.1); CREATININE 1.2 mg/dL (0.6-1.0); POTASSIUM 4.5 mmol/L (3.5-5.1)
--- NOTE | 2019-09-25 15:09 | NUR ---
PT A&O X4. DENIES PAIN BUT IS HAVING MILD TENDERNESS TO LEFT GROIN WITH MOVEMENT. WOUND VAC IN PLACE TO LEFT GROIN. A-LINE, HAHN, AND IV FLUIDS DISCONTINUED THIS AM. TOLERATING PO WELL. ABLE TO WEAN O2 OFF AND O2 SAT STABLE ON ROOM AIR. UP TO CHAIR AND AMBULATING IN ROOM WITH MODERATE ASSISTANCE. PT STATES SHE DOES NOT FEEL STRONG ENOUGH TO AMBULATE AT HOME/DISCHARGE TODAY. PT/OT CONSULTED AND HERE TO SEE PT THIS AFTERNOON. AMBULATING WITH WALKER IN ROOM. ORDER TO TRANSFER TO CCU. AWAITING AVAILABLE ROOM. WILL CONTINUE TO MONITOR PATIENT.
--- NOTE | 2019-09-25 16:17 | NUR ---
Case opened to follow for dc planning. Pt is transfering out of ICU this evening to CCU. Pt being evaluated by PT/OT due to pain and weakness s/p lt femoral endarterectomy. The pt lives with her spouse and is normally indep. She has 3 steps to enter their home. She drives and has a caregiver/watch dial maker that helps to care for her spouse who has Alzh. Case discussed with the care team and pt indicates she is checking with their caregiver to see if she can spend the night with the pt's spouse tonight and stay with them a few days (she has done this in the past). She is receptive to HH f/u but only for therapy and denies agency preference. Referral faxed to [facility]. They will need the dc summary and instructions with HH orders faxed to intake at [phone] and their oncall nurse notified of dc at [phone]. Possible dc home with hh tomorrow.
--- NOTE | 2019-09-25 18:10 | NUR ---
PT TRANSFERED FROM ICU @1800 IN STABLE CONDITION. VSS. WILL CONTINUE TO MONITOR.
[2019-09-26 03:50] VITALS: BP 120/53
--- NOTE | 2019-09-26 06:49 | NUR ---
PATIENT IS UP WITH ONE ASSIST AND AMBULATES TO TOILET WITH WALKER. PATIENT WEARS A BRIEF. PATIENT WET THE BED IN THE NOC AND FULL BED LINEN CHANGE WAS REQUIRED. PATIENT HAS BILATERAL EDEMA IN LE. PATIENT IS S/R WITH 1AVB ON THE MONITOR. PATIENT C/O OF PAIN IN THE LEFT GROIN AND HAS A WOUND VAC IN PLACE. ON LAST PAIN ASSESSMENT, PAIN WAS VERBALIZED AT A 2 ON NUMERIC SCALE; HAS PRN PAIN MEDS.
[2019-09-26 08:41] VITALS: BP 126/64
--- NOTE | 2019-09-26 11:12 | O ---
[facility] [place] [address] OPERATIVE REPORT Name: DHEERAJ DOUGLASS Room #: 209-P ADM IN M.R.#: [id number] Admission: 09/24/19 Attend Phys: Oscar Hadley MD Discharge: Date of : 39 Report #: [id number] THIS REPORT FOR: cc: Mera Daley MD,Mera Hadley,Oscar Mcdaniel MD ~ CC: Oscar Daley DATE OF SERVICE: 09/24/2019 PREOPERATIVE DIAGNOSIS: Left common femoral artery stenosis. POSTOPERATIVE DIAGNOSIS: Left common femoral artery stenosis. OPERATION: Left femoral endarterectomy with patch closure. SURGEON: Oscar Hadley MD FIRE CODE INSPECTOR: SHERIDAN Mendoza. ANESTHESIA: General. INDICATIONS: The patient is an 79-year-old with rest pain in the left foot. This is related to multivessel arterial occlusive disease, but particular left femoral artery stenosis that involved the common deep and superficial femoral arteries. FINDINGS AND TECHNIQUE: After general anesthesia was established, an incision was made in the left groin to expose the common deep and superficial femoral arteries. The 10,000 units of heparin were given. The femoral vessels were occluded. The arteriotomy was made. The endarterectomy was performed without creating a distal flap. Armaan-intima was inspected and all loose debris was removed. Tacking sutures were placed at the transition zone and the superficial femoral. When the endarterectomy was deemed to be satisfactory, a thin walled pericardial patch was used with running Prolene to close the arteriotomy. Prior to finishing the closure, the artery was backbled and the flow was reestablished once the arteriotomy was closed. Protamine was given to reverse the heparin. Hemostasis was ascertained. When hemostasis was satisfactory, the wound was closed in layers. [facility] [address] [place] [address] OPERATIVE REPORT Name: EVONNEDHEERAJ Sanchez Room #: 209-P [facility] IN M.R.#: [id number] Admission: 09/24/19 Attend Phys: Oscar Hadley MD Discharge: Date of : 39 Report #: [id number] dressing was applied. The patient was taken to the recovery area in good condition having tolerated the procedure well. All counts reported as correct. <ELECTRONICALLY SIGNED> By: Oscar Hadley MD 09/26/19 1112 1220 1243 Oscar Hadley MD /nt
[2019-09-26 12:44] VITALS: BP 109/39
--- NOTE | 2019-09-26 13:39 | NUR ---
ASSESSMENT CHARTED. PT ALERT AND ORIENTED. VSS. AMBULATED X1 THIS SHIFT. P IN THE CHAIR THIS AM. WOUND VAC DRESSING INTACT. SEEN BY DR. BARKSDALE. ORDERS GIVEN TO DISCHARGE PT TO HOME WITH HH. DISCHARGE SUMMARY AND ORDERS FAXED TO HH.
--- NOTE | 2019-09-28 15:08 | NUR ---
PT DISCHARGED ON MONDAY 09/25 TO HOME WITH [facility] HH FAXED DC ORDERS/SUMMARY SPOKE WITH JESSICA IN INTAKE SHE RECEIVED ORDERS AND WILL ARRANGE VISITS WITH PT.
--- NOTE | 2019-09-28 17:06 | PATH ---
[facility] [address] [place] [address] PATHOLOGY RPT PROCEDURE Name: MARYAM DOUGLASS Room #: 209-P DIS IN M.R.#: [id number] Admission: 09/24/19 Date of : 39 Discharge: 09/26/19 Report #: [id number] Path Case #: [id number] [facility] Accession Number: [id number] . 01 Material submitted: . artery - LEFT FEMORAL PLAQUE. Modifiers: left . 01 Clinical history: . Arterial occlusive disease . 02 Diagnosis: Left femoral plaque, endarterectomy: - Calcified atherosclerotic plaque. 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 (IUV:metal fabricating inspector; 09/28/2019) MBR 09/28/2019 1455 Local . 02 Electronically signed: . Louise Loazno MD, Pathologist NPI- [id number] . 01 Gross description: . The specimen is received in formalin, labeled "Maryam Minor, left femoral plaque". Received is a segment of predominantly calcified yellow-chanel plaque measuring 4.5 cm in length by 0.9 cm in diameter. The specimen is submitted representatively in cassette A1, following light decalcification. (CAA; 09/25/2019) QA/QA 09/25/2019 1028 Local . 02 Pathologist provided ICD-10: I70.202 . 02 CPT . 554814, [id number] Specimen Comment: A courtesy copy of this report has been sent to [phone] Specimen Comment: [phone] Specimen Comment: Report sent to / Performed at: [address], [place], [place] [id number] MD Kishore Teixeira MD Phone: [phone] Performed at: [address] [id number] MD Louise Lozano MD Phone: [phone]
== END 2019-09-26 13:29 | disposition home health service (06) | DRG 254 ==
LOC: TBA 06:29 → PRE 10:25 → ICU 13:20 → PRE 15:00 → 2N 09-25 17:26
PROVIDERS: Physician Assistant; ADMIT Surgery Vascular Surgery; ATTEND Surgery Vascular Surgery
PROC: 04UL0JZ Supplement Left Femoral Artery with Synthetic Substitute, Open Approach (ICD-10-PCS; principal; 2019-09-24)
PROC: 04CL0ZZ Extirpation of Matter from Left Femoral Artery, Open Approach (ICD-10-PCS; principal; 2019-09-24)
DX: I74.3 Embolism and thrombosis of arteries of the lower extremities (principal); E78.5 Hyperlipidemia, unspecified; I10 Essential (primary) hypertension; E78.00 Pure hypercholesterolemia, unspecified; K21.9 Gastro-esophageal reflux disease without esophagitis; Z88.5 Allergy status to narcotic agent; Z90.710 Acquired absence of both cervix and uterus; Z95.820 Peripheral vascular angioplasty status with implants and grafts; Z85.828 Personal history of other malignant neoplasm of skin; Z79.899 Other long term (current) drug therapy; Z87.891 Personal history of nicotine dependence
CPT/HCPCS: 10081; 10204; 47375; 48888; 50010; 50101; 50386; 50455; 50643; 50953; 51301; 51481; 52279; 52287; 54118; 56524; 56526; 56528; 56531; 56534; 57092; 57093; 62110; 62900; 65020; 65040; 65090; 70005

== ENCOUNTER → 2019-10-15 | Outpatient (CLI) | payer OTHER | LOC: HYPER 10:44 | PROVIDERS: ATTEND Emergency Medicine | DX: L97.522 Non-pressure chronic ulcer of other part of left foot with fat layer exposed (principal); S81.811A Laceration without foreign body, right lower leg, initial encounter; L84 Corns and callosities; E78.5 Hyperlipidemia, unspecified; G62.9 Polyneuropathy, unspecified; H26.9 Unspecified cataract; R60.9 Edema, unspecified; I73.9 Peripheral vascular disease, unspecified; I10 Essential (primary) hypertension; Z90.710 Acquired absence of both cervix and uterus; Z85.41 Personal history of malignant neoplasm of cervix uteri; Z87.891 Personal history of nicotine dependence; Z98.49 Cataract extraction status, unspecified eye ==

== ENCOUNTER → 2019-10-20 | Outpatient (CLI) | payer OTHER | LOC: SJCVCIMAG 11:26 | PROVIDERS: ATTEND Nuclear Medicine Nuclear Cardiology | DX: I73.9 Peripheral vascular disease, unspecified (principal); I65.23 Occlusion and stenosis of bilateral carotid arteries; S81.809A Unspecified open wound, unspecified lower leg, initial encounter; I10 Essential (primary) hypertension; E78.00 Pure hypercholesterolemia, unspecified; Z95.820 Peripheral vascular angioplasty status with implants and grafts; Z79.899 Other long term (current) drug therapy; Z87.891 Personal history of nicotine dependence; X58.XXXA Exposure to other specified factors, initial encounter; Y93.89 Activity, other specified; Y92.89 Other specified places as the place of occurrence of the external cause; Y99.8 Other external cause status ==

== ENCOUNTER → 2019-11-03 | Outpatient (CLI) | payer OTHER | LOC: HYPER 13:04 | PROVIDERS: ATTEND Emergency Medicine | DX: T81.89XA Other complications of procedures, not elsewhere classified, initial encounter (principal); S90.425D Blister (nonthermal), left lesser toe(s), subsequent encounter; S81.811D Laceration without foreign body, right lower leg, subsequent encounter; L84 Corns and callosities; I73.9 Peripheral vascular disease, unspecified; E78.5 Hyperlipidemia, unspecified; R60.9 Edema, unspecified; G60.3 Idiopathic progressive neuropathy; I10 Essential (primary) hypertension; H26.9 Unspecified cataract; Z87.891 Personal history of nicotine dependence; Z85.41 Personal history of malignant neoplasm of cervix uteri; X58.XXXD Exposure to other specified factors, subsequent encounter; Y92.238 Other place in hospital as the place of occurrence of the external cause; Y83.8 Other surgical procedures as the cause of abnormal reaction of the patient, or of later complication, without mention of misadventure at the time of the procedure ==

== ENCOUNTER → 2019-11-17 | Outpatient (CLI) | payer OTHER | LOC: HYPER 13:48 | PROVIDERS: ATTEND Emergency Medicine | DX: T81.89XD Other complications of procedures, not elsewhere classified, subsequent encounter (principal); L97.522 Non-pressure chronic ulcer of other part of left foot with fat layer exposed; S81.811D Laceration without foreign body, right lower leg, subsequent encounter; G60.3 Idiopathic progressive neuropathy; R60.9 Edema, unspecified; L84 Corns and callosities; I73.9 Peripheral vascular disease, unspecified; I10 Essential (primary) hypertension; E78.5 Hyperlipidemia, unspecified; H26.9 Unspecified cataract; G47.00 Insomnia, unspecified; Z85.42 Personal history of malignant neoplasm of other parts of uterus; Z87.891 Personal history of nicotine dependence; X58.XXXD Exposure to other specified factors, subsequent encounter; Y83.8 Other surgical procedures as the cause of abnormal reaction of the patient, or of later complication, without mention of misadventure at the time of the procedure ==

== ENCOUNTER → 2019-12-14 | Outpatient (CLI) | payer OTHER | LOC: HYPER 10:25 | PROVIDERS: ATTEND Emergency Medicine | DX: L97.522 Non-pressure chronic ulcer of other part of left foot with fat layer exposed (principal); L84 Corns and callosities; S81.811D Laceration without foreign body, right lower leg, subsequent encounter; I73.9 Peripheral vascular disease, unspecified; H26.9 Unspecified cataract; R60.9 Edema, unspecified; G60.3 Idiopathic progressive neuropathy; G47.00 Insomnia, unspecified; E66.9 Obesity, unspecified; E78.5 Hyperlipidemia, unspecified; I10 Essential (primary) hypertension; Z87.891 Personal history of nicotine dependence; Z85.41 Personal history of malignant neoplasm of cervix uteri; Z68.30 Body mass index [BMI] 30.0-30.9, adult; X58.XXXD Exposure to other specified factors, subsequent encounter ==

== ENCOUNTER → 2019-12-28 | Outpatient (CLI) | payer OTHER | LOC: HYPER 13:50 | PROVIDERS: ATTEND Emergency Medicine | DX: L97.522 Non-pressure chronic ulcer of other part of left foot with fat layer exposed (principal); L84 Corns and callosities; G60.3 Idiopathic progressive neuropathy; G47.00 Insomnia, unspecified; E78.5 Hyperlipidemia, unspecified; H26.9 Unspecified cataract; I73.9 Peripheral vascular disease, unspecified; R60.9 Edema, unspecified; I10 Essential (primary) hypertension; Z85.41 Personal history of malignant neoplasm of cervix uteri; Z87.891 Personal history of nicotine dependence ==

== ENCOUNTER → 2020-01-11 | Outpatient (CLI) | payer OTHER | LOC: HYPER 12:12 | PROVIDERS: ATTEND Emergency Medicine | DX: L97.522 Non-pressure chronic ulcer of other part of left foot with fat layer exposed (principal); L84 Corns and callosities; G60.3 Idiopathic progressive neuropathy; G47.00 Insomnia, unspecified; E78.5 Hyperlipidemia, unspecified; H26.9 Unspecified cataract; I73.9 Peripheral vascular disease, unspecified; R60.9 Edema, unspecified; I10 Essential (primary) hypertension; Z85.41 Personal history of malignant neoplasm of cervix uteri; Z87.891 Personal history of nicotine dependence ==

== ENCOUNTER → 2020-01-25 | Outpatient (CLI) | payer OTHER | LOC: HYPER 13:25 | PROVIDERS: ATTEND Emergency Medicine | DX: L97.522 Non-pressure chronic ulcer of other part of left foot with fat layer exposed (principal); L84 Corns and callosities; E78.5 Hyperlipidemia, unspecified; G60.3 Idiopathic progressive neuropathy; R60.9 Edema, unspecified; H26.9 Unspecified cataract; I73.9 Peripheral vascular disease, unspecified; I10 Essential (primary) hypertension; Z85.41 Personal history of malignant neoplasm of cervix uteri ==

== ENCOUNTER → 2020-02-08 | Outpatient (CLI) | payer OTHER | LOC: HYPER 10:16 | PROVIDERS: ATTEND Emergency Medicine | DX: L97.522 Non-pressure chronic ulcer of other part of left foot with fat layer exposed (principal); L84 Corns and callosities; E78.5 Hyperlipidemia, unspecified; G60.3 Idiopathic progressive neuropathy; R60.9 Edema, unspecified; H26.9 Unspecified cataract; I73.9 Peripheral vascular disease, unspecified; I10 Essential (primary) hypertension; Z85.41 Personal history of malignant neoplasm of cervix uteri; Z87.891 Personal history of nicotine dependence ==

== ENCOUNTER → 2020-02-17 | Outpatient (CLI) | payer OTHER | LOC: HYPER 09:30 | PROVIDERS: ATTEND Emergency Medicine | DX: L97.522 Non-pressure chronic ulcer of other part of left foot with fat layer exposed (principal); L84 Corns and callosities; E78.5 Hyperlipidemia, unspecified; G60.3 Idiopathic progressive neuropathy; G47.00 Insomnia, unspecified; R60.9 Edema, unspecified; H26.9 Unspecified cataract; I73.9 Peripheral vascular disease, unspecified; I10 Essential (primary) hypertension; Z85.41 Personal history of malignant neoplasm of cervix uteri; Z87.891 Personal history of nicotine dependence ==

== ENCOUNTER → 2020-03-03 | Outpatient (CLI) | payer OTHER | LOC: HYPER 12:46 | PROVIDERS: ATTEND Emergency Medicine | DX: L97.522 Non-pressure chronic ulcer of other part of left foot with fat layer exposed (principal); L84 Corns and callosities; I73.9 Peripheral vascular disease, unspecified; G60.3 Idiopathic progressive neuropathy; R60.9 Edema, unspecified; I10 Essential (primary) hypertension; E78.5 Hyperlipidemia, unspecified; H26.9 Unspecified cataract; G47.00 Insomnia, unspecified; Z85.41 Personal history of malignant neoplasm of cervix uteri; Z87.891 Personal history of nicotine dependence ==

== ENCOUNTER → 2020-03-17 | Outpatient (CLI) | payer OTHER | LOC: HYPER 10:08 | PROVIDERS: ATTEND Emergency Medicine | DX: L97.522 Non-pressure chronic ulcer of other part of left foot with fat layer exposed (principal); L84 Corns and callosities; I73.9 Peripheral vascular disease, unspecified; G60.3 Idiopathic progressive neuropathy; R60.9 Edema, unspecified; I10 Essential (primary) hypertension; E78.5 Hyperlipidemia, unspecified; H26.9 Unspecified cataract; G47.00 Insomnia, unspecified; Z85.41 Personal history of malignant neoplasm of cervix uteri; Z87.891 Personal history of nicotine dependence ==

== ENCOUNTER → 2020-04-05 | Outpatient (CLI) | payer OTHER | LOC: HYPER 12:53 | PROVIDERS: ATTEND Emergency Medicine | DX: L97.522 Non-pressure chronic ulcer of other part of left foot with fat layer exposed (principal); L84 Corns and callosities; I73.9 Peripheral vascular disease, unspecified; G60.3 Idiopathic progressive neuropathy; R60.9 Edema, unspecified; I10 Essential (primary) hypertension; E78.5 Hyperlipidemia, unspecified; H26.9 Unspecified cataract; G47.00 Insomnia, unspecified; Z85.41 Personal history of malignant neoplasm of cervix uteri; Z87.891 Personal history of nicotine dependence ==

== ENCOUNTER → 2020-04-19 | Outpatient (CLI) | payer OTHER | LOC: HYPER 13:13 | PROVIDERS: ATTEND Emergency Medicine | DX: L97.522 Non-pressure chronic ulcer of other part of left foot with fat layer exposed (principal); L84 Corns and callosities; I73.9 Peripheral vascular disease, unspecified; R60.9 Edema, unspecified; G60.3 Idiopathic progressive neuropathy; I10 Essential (primary) hypertension; E78.5 Hyperlipidemia, unspecified; H26.9 Unspecified cataract; G47.00 Insomnia, unspecified; Z85.41 Personal history of malignant neoplasm of cervix uteri; Z85.3 Personal history of malignant neoplasm of breast; Z87.891 Personal history of nicotine dependence; Z79.899 Other long term (current) drug therapy ==

== ENCOUNTER → 2020-05-12 | Outpatient (CLI) | payer OTHER | LOC: HYPER 13:36 | PROVIDERS: ATTEND Emergency Medicine | DX: L97.522 Non-pressure chronic ulcer of other part of left foot with fat layer exposed (principal); L84 Corns and callosities; I73.9 Peripheral vascular disease, unspecified; R60.9 Edema, unspecified; G60.3 Idiopathic progressive neuropathy; I10 Essential (primary) hypertension; E78.5 Hyperlipidemia, unspecified; H26.9 Unspecified cataract; G47.00 Insomnia, unspecified; Z85.41 Personal history of malignant neoplasm of cervix uteri; Z85.3 Personal history of malignant neoplasm of breast; Z87.891 Personal history of nicotine dependence; Z79.899 Other long term (current) drug therapy ==

== ENCOUNTER → 2020-05-17 | Outpatient (CLI) | payer OTHER | LOC: SJCVCIMAG 08:20 | PROVIDERS: ATTEND Nuclear Medicine Nuclear Cardiology | DX: I70.203 Unspecified atherosclerosis of native arteries of extremities, bilateral legs (principal); I65.23 Occlusion and stenosis of bilateral carotid arteries; I77.9 Disorder of arteries and arterioles, unspecified; I10 Essential (primary) hypertension; E78.00 Pure hypercholesterolemia, unspecified; F17.201 Nicotine dependence, unspecified, in remission; Z85.3 Personal history of malignant neoplasm of breast; Z87.891 Personal history of nicotine dependence; Z88.5 Allergy status to narcotic agent; Z79.899 Other long term (current) drug therapy ==

== ENCOUNTER → 2020-06-02 | Outpatient (CLI) | payer OTHER | LOC: HYPER 13:11 | PROVIDERS: ATTEND Emergency Medicine | DX: L97.522 Non-pressure chronic ulcer of other part of left foot with fat layer exposed (principal); L84 Corns and callosities; I73.9 Peripheral vascular disease, unspecified; R60.9 Edema, unspecified; I10 Essential (primary) hypertension; G47.00 Insomnia, unspecified; G60.8 Other hereditary and idiopathic neuropathies; E78.5 Hyperlipidemia, unspecified; H26.9 Unspecified cataract; Z85.41 Personal history of malignant neoplasm of cervix uteri; Z87.891 Personal history of nicotine dependence; Z79.899 Other long term (current) drug therapy ==

== ENCOUNTER → 2020-06-09 | Outpatient (CLI) | payer OTHER ==
[~2020-06-09] VITALS: Ht 162.6 cm; Wt 74.8 kg
[~2020-06-09] MED LIST changes: +ASA81BEC PO; +CELEXA 10 MG TA10 M1 PO; +VITAMIN C500 M2 PO
[2020-06-09 08:31] VITALS: BP 107/49
[2020-06-09 09:08] LABS: HEMATOCRIT 34.1 % (37.0-47.0); HEMOGLOBIN 11.2 gm/dL (12.0-15.0); MCH 29.3 pg (26.0-34.0); MCHC 32.8 g/dL (28.0-37.0); MCV 89.3 fL (80.0-100.0); RBC 3.82 mil/uL (4.20-5.00); RDW 14.9 % (10.5-14.5); WBC 8.3 thou/uL (4.0-11.0)
[2020-06-09 09:25] LABS: CALCIUM 8.7 mg/dL (8.5-10.1); CREATININE 1.1 mg/dL (0.6-1.0); POTASSIUM 3.9 mmol/L (3.5-5.1)
== END | disposition home or self-care (01) ==
LOC: CATH 07:45
PROVIDERS: ATTEND Nuclear Medicine Nuclear Cardiology
DX: I70.213 Atherosclerosis of native arteries of extremities with intermittent claudication, bilateral legs (principal); I70.1 Atherosclerosis of renal artery; I10 Essential (primary) hypertension; E11.9 Type 2 diabetes mellitus without complications; E78.5 Hyperlipidemia, unspecified; F32.9 Major depressive disorder, single episode, unspecified; F41.9 Anxiety disorder, unspecified; E66.9 Obesity, unspecified; F17.210 Nicotine dependence, cigarettes, uncomplicated; Z98.890 Other specified postprocedural states; Z79.899 Other long term (current) drug therapy; Z79.4 Long term (current) use of insulin; Z90.710 Acquired absence of both cervix and uterus; Z85.828 Personal history of other malignant neoplasm of skin; Z98.41 Cataract extraction status, right eye; Z98.42 Cataract extraction status, left eye

== ENCOUNTER → 2020-06-21 | Outpatient (CLI) | payer OTHER | LOC: HYPER 07:55 | PROVIDERS: ATTEND Emergency Medicine | DX: L97.522 Non-pressure chronic ulcer of other part of left foot with fat layer exposed (principal); L84 Corns and callosities; I73.9 Peripheral vascular disease, unspecified; R60.9 Edema, unspecified; I10 Essential (primary) hypertension; G47.00 Insomnia, unspecified; G60.8 Other hereditary and idiopathic neuropathies; E78.5 Hyperlipidemia, unspecified; H26.9 Unspecified cataract; Z85.41 Personal history of malignant neoplasm of cervix uteri; Z87.891 Personal history of nicotine dependence ==

== ENCOUNTER → 2020-07-06 | Outpatient (CLI) | payer OTHER | LOC: HYPER 15:43 | PROVIDERS: ATTEND Emergency Medicine | DX: L97.522 Non-pressure chronic ulcer of other part of left foot with fat layer exposed (principal); L84 Corns and callosities; I73.9 Peripheral vascular disease, unspecified; R60.9 Edema, unspecified; I10 Essential (primary) hypertension; G47.00 Insomnia, unspecified; G60.3 Idiopathic progressive neuropathy; E78.5 Hyperlipidemia, unspecified; H26.9 Unspecified cataract; Z85.41 Personal history of malignant neoplasm of cervix uteri; Z87.891 Personal history of nicotine dependence ==

== ENCOUNTER → 2020-07-26 | Outpatient (CLI) | payer OTHER | LOC: HYPER 08:35 | PROVIDERS: ATTEND Emergency Medicine | DX: L97.522 Non-pressure chronic ulcer of other part of left foot with fat layer exposed (principal); L84 Corns and callosities; I73.9 Peripheral vascular disease, unspecified; R60.9 Edema, unspecified; I10 Essential (primary) hypertension; G47.00 Insomnia, unspecified; G60.3 Idiopathic progressive neuropathy; E78.5 Hyperlipidemia, unspecified; H26.9 Unspecified cataract; Z85.41 Personal history of malignant neoplasm of cervix uteri; Z87.891 Personal history of nicotine dependence ==

== ENCOUNTER → 2020-08-16 | Outpatient (CLI) | payer OTHER | LOC: HYPER 08:17 | PROVIDERS: ATTEND Emergency Medicine | DX: L97.522 Non-pressure chronic ulcer of other part of left foot with fat layer exposed (principal); I73.9 Peripheral vascular disease, unspecified; L84 Corns and callosities; R60.9 Edema, unspecified; G60.3 Idiopathic progressive neuropathy; I10 Essential (primary) hypertension; E78.5 Hyperlipidemia, unspecified; H26.9 Unspecified cataract; G47.00 Insomnia, unspecified; Z85.41 Personal history of malignant neoplasm of cervix uteri; Z87.891 Personal history of nicotine dependence; Z98.890 Other specified postprocedural states; Z79.899 Other long term (current) drug therapy ==

== ENCOUNTER → 2020-08-29 | Outpatient (CLI) | payer OTHER | LOC: HYPER 09:34 | PROVIDERS: ATTEND Emergency Medicine | DX: L97.522 Non-pressure chronic ulcer of other part of left foot with fat layer exposed (principal); L84 Corns and callosities; I73.9 Peripheral vascular disease, unspecified; R60.9 Edema, unspecified; G60.3 Idiopathic progressive neuropathy; I10 Essential (primary) hypertension; G47.00 Insomnia, unspecified; E78.5 Hyperlipidemia, unspecified; H26.9 Unspecified cataract; Z85.41 Personal history of malignant neoplasm of cervix uteri; Z87.891 Personal history of nicotine dependence; Z98.890 Other specified postprocedural states; Z79.899 Other long term (current) drug therapy ==

== ENCOUNTER → 2020-09-05 | Outpatient (CLI) | payer OTHER | LOC: SJCVCIMAG 09:21 | PROVIDERS: ATTEND Nuclear Medicine Nuclear Cardiology | DX: I73.9 Peripheral vascular disease, unspecified (principal); L97.519 Non-pressure chronic ulcer of other part of right foot with unspecified severity; I77.9 Disorder of arteries and arterioles, unspecified; I10 Essential (primary) hypertension; E78.00 Pure hypercholesterolemia, unspecified; F17.201 Nicotine dependence, unspecified, in remission; Z95.820 Peripheral vascular angioplasty status with implants and grafts; Z79.899 Other long term (current) drug therapy; Z85.3 Personal history of malignant neoplasm of breast; Z88.5 Allergy status to narcotic agent ==

== ENCOUNTER → 2020-09-19 | Outpatient (CLI) | payer OTHER | LOC: HYPER 07:54 | PROVIDERS: ATTEND Emergency Medicine | DX: L97.522 Non-pressure chronic ulcer of other part of left foot with fat layer exposed (principal); L84 Corns and callosities; I73.9 Peripheral vascular disease, unspecified; R60.9 Edema, unspecified; G60.3 Idiopathic progressive neuropathy; I10 Essential (primary) hypertension; G47.00 Insomnia, unspecified; E78.5 Hyperlipidemia, unspecified; H26.9 Unspecified cataract; Z85.41 Personal history of malignant neoplasm of cervix uteri; Z87.891 Personal history of nicotine dependence ==

== ENCOUNTER → 2020-10-10 | Outpatient (CLI) | payer OTHER | LOC: HYPER 08:08 | PROVIDERS: ATTEND Emergency Medicine | DX: L97.522 Non-pressure chronic ulcer of other part of left foot with fat layer exposed (principal); L84 Corns and callosities; I73.9 Peripheral vascular disease, unspecified; R60.9 Edema, unspecified; G60.3 Idiopathic progressive neuropathy; G47.00 Insomnia, unspecified; H26.9 Unspecified cataract; E78.5 Hyperlipidemia, unspecified; I10 Essential (primary) hypertension; Z85.41 Personal history of malignant neoplasm of cervix uteri; Z87.891 Personal history of nicotine dependence ==

== ENCOUNTER → 2020-11-01 | Outpatient (CLI) | payer OTHER | LOC: HYPER 08:06 | PROVIDERS: ATTEND Emergency Medicine | DX: L97.522 Non-pressure chronic ulcer of other part of left foot with fat layer exposed (principal); S61.412A Laceration without foreign body of left hand, initial encounter; L84 Corns and callosities; I73.9 Peripheral vascular disease, unspecified; R60.9 Edema, unspecified; G60.3 Idiopathic progressive neuropathy; G47.00 Insomnia, unspecified; H26.9 Unspecified cataract; E78.5 Hyperlipidemia, unspecified; I10 Essential (primary) hypertension; Z85.41 Personal history of malignant neoplasm of cervix uteri; Z87.891 Personal history of nicotine dependence; X58.XXXA Exposure to other specified factors, initial encounter; Y93.89 Activity, other specified; Y92.89 Other specified places as the place of occurrence of the external cause; Y99.8 Other external cause status ==

== ENCOUNTER → 2020-12-26 | Outpatient (CLI) | payer OTHER | LOC: HYPER 08:05 | PROVIDERS: ATTEND Emergency Medicine | DX: L97.522 Non-pressure chronic ulcer of other part of left foot with fat layer exposed (principal); L84 Corns and callosities; I73.9 Peripheral vascular disease, unspecified; R60.9 Edema, unspecified; G60.3 Idiopathic progressive neuropathy; I10 Essential (primary) hypertension; E78.5 Hyperlipidemia, unspecified; H26.9 Unspecified cataract; G47.00 Insomnia, unspecified; Z85.41 Personal history of malignant neoplasm of cervix uteri; Z87.891 Personal history of nicotine dependence; Z79.899 Other long term (current) drug therapy ==

== ENCOUNTER → 2021-01-23 | Outpatient (CLI) | payer OTHER | LOC: HYPER 12:45 | PROVIDERS: ATTEND Emergency Medicine | DX: L97.522 Non-pressure chronic ulcer of other part of left foot with fat layer exposed (principal); L84 Corns and callosities; I73.9 Peripheral vascular disease, unspecified; R60.9 Edema, unspecified; G60.3 Idiopathic progressive neuropathy; I10 Essential (primary) hypertension; E78.5 Hyperlipidemia, unspecified; H26.9 Unspecified cataract; G47.00 Insomnia, unspecified; Z85.41 Personal history of malignant neoplasm of cervix uteri; Z87.891 Personal history of nicotine dependence ==

== ENCOUNTER 2021-02-02 11:37 | Inpatient (IN) | payer OTHER ==
[~2021-02-02] VITALS: Ht 162.6 cm; Wt 72.6 kg
[2021-02-02 11:37] VITALS: BP 192/79
[~2021-02-02 11:37] MED LIST changes: -CELEXA 10 MG TA10 M1 PO
[2021-02-02] MEDS ORDERED: LASIX 20 MG TAB20 MG PO (11:44)
--- NOTE | 2021-02-02 12:04 | NUR ---
PT GOING TO CT AT THIS TIME
[2021-02-02 12:41] LABS: BASOPHILS 1.2 % (0.0-2.0); EOSINOPHILS 0.2 % (0.0-3.0); HEMATOCRIT 36.9 % (37.0-47.0); LYMPHOCYTES 11.2 % (24.0-44.0); MCH 28.9 pg (26.0-34.0); MCHC 32.5 g/dL (28.0-37.0); MONOCYTES 7.5 % (1.0-8.0); PLATELET COUNT 306 thou/uL (150-400); POLYS 79.9 % (36.0-66.0); RBC 4.15 mil/uL (4.20-5.00); RDW 16.4 % (10.5-14.5); WBC 13.7 thou/uL (4.0-11.0)
[2021-02-02 12:48] LABS: CALCIUM 9.1 mg/dL (8.5-10.1); CREATININE 0.9 mg/dL (0.6-1.0)
[2021-02-02 12:55] LABS: ALBUMIN 3.8 g/dL (3.4-5.0); TOTAL BILIRUBIN 0.3 mg/dL (0.2-1.0); TOTAL PROTEIN 7.3 g/dL (6.4-8.2)
--- NOTE | 2021-02-02 14:37 | NUR ---
PT AMBULATING WITH TECH BY HER SAID. PT APPEARS TO BE WALKING APPROPRIATELY FOR HER BASELINE
[2021-02-02] MEDS ORDERED: NORCO5 PO (15:01)
--- NOTE | 2021-02-02 15:25 | NUR ---
pt intially stated she had family at home who could take care of her but after talking speaking to the patients daughter, this is not true and there is no one at home to care for the patient. After speaking with Dr. Smallwood and the patient we believe it is in the best interest to admit the patient.
[2021-02-02] MEDS ORDERED: NEURONTIN 400400 M1 PO (17:37)
[2021-02-02 18:25] VITALS: BP 172/76
[2021-02-02 18:58] LABS: FOLIC ACID 26.5 ng/mL (8.6-58.9)
[2021-02-02 21:51] VITALS: BP 140/49
[2021-02-03 01:57] LABS: ABSOLUTE NEUTROPHILS 5.6 thou/uL (1.4-8.2); BASOPHILS 0.9 % (0.0-2.0); EOSINOPHILS 0.7 % (0.0-3.0); HEMATOCRIT 33.1 % (37.0-47.0); HEMOGLOBIN 10.8 gm/dL (12.0-15.0); LYMPHOCYTES 18.2 % (24.0-44.0); MCH 28.7 pg (26.0-34.0); MCHC 32.6 g/dL (28.0-37.0); MONOCYTES 10.3 % (1.0-8.0); POLYS 69.9 % (36.0-66.0); RBC 3.76 mil/uL (4.20-5.00); RDW 16.1 % (10.5-14.5)
[2021-02-03 02:10] LABS: CALCIUM 8.2 mg/dL (8.5-10.1); CREATININE 0.7 mg/dL (0.6-1.0); MAGNESIUM 1.5 mg/dL (1.8-2.4); POTASSIUM 3.1 mmol/L (3.5-5.1)
[2021-02-03 02:13] LABS: PLATELET COUNT 223 thou/uL (150-400)
[2021-02-03 15:47] LABS: URINE BILIRUBIN NEGATIVE (Negative); URINE BLOOD 2+ (Negative); URINE CLARITY SL CLOUDY; URINE COLOR YELLOW; URINE GLUCOSE-RANDOM* NEGATIVE (Negative); URINE KETONES NEGATIVE (Negative); URINE NITRITE-REFLEX NEGATIVE (Negative); URINE PROTEIN (DIPSTICK) NEGATIVE (Negative); URINE SPECIFIC GRAVITY 1.015 (1.005-1.035); URINE UROBILINOGEN 0.2 E.U./dl (0.2-1.0)
[2021-02-03 16:02] VITALS: BP 150/65
[2021-02-03 16:09] LABS: URINE LEUKOCYTES-REFLEX 1+ (Negative)
[2021-02-03 16:13] LABS: SQUAMOUS 0-3 Few /LPF (0-3)
[2021-02-03 16:14] LABS: CASTS None Seen /LPF (None Seen); CRYSTALS None Seen /LPF (None Seen); URINE RBC 3-10 Few /HPF (NONE SEEN); URINE WBC-REFLEX 6-15 Few /HPF (0-5)
[2021-02-03 17:00] VITALS: BP 159/72
--- NOTE | 2021-02-03 18:31 | NUR ---
Pt is new admit from ED. Pt VS stable. Pt received medications and also received PRN medications. Pt is x 1 assist with ADLs and cares. Pt is SR on the tele. Pt is able to make needs known
[2021-02-03 20:00] VITALS: BP 147/61
--- NOTE | 2021-02-04 05:41 | NUR ---
ASSUMED CARE AT 1915 OF 02/03. PATIENT IS A&OX4, DENIES SHORTNESS OF BREATH OR CHEST PAIN. CURRENTLY ON TELE, SINUS TACHYCARDIA NOTED. PATIENT REPORTS PAIN IN RIGHT SHOULDER, PAIN MANAGED WITH PRN PAIN MEDICATION WITH SOME RELIEF REPORTED BY PATIENT. PUREWICK IN PLACE OVERNIGHT, DRAINING CLEAR GILMAR URINE. ASSISTED WITH REPOSITIONING. STITCHES OVER BOTTOM LIP ARE IN PLACE AND INTACT, NO S/S OF INFECTION NOTED. FALL PRECAUTIONS ARE IN PLACE, CALL LIGHT WITHIN REACH. ABLE TO MAKE NEEDS KNOWN. WILL CONTINUE TO MONITOR.
[2021-02-04 08:07] VITALS: BP 159/79
[2021-02-04 16:54] VITALS: BP 143/66
--- NOTE | 2021-02-04 19:37 | NUR ---
PT DID WELL TODAY REGARDING PAIN. WAS ONLY GIVEN FENTANYL X 1 THIS SHIFT. NO NORCO NEEDED TO BE GIVEN. UP TO BSC X 1, BUT UNABLE TO HAVE BM AT THAT TIME. CONTINUES USING PUREWICK. NO ISSUES THIS SHIFT.
[2021-02-04 21:00] VITALS: BP 146/63
[2021-02-05 00:29] VITALS: BP 140/75
[2021-02-05 06:13] VITALS: BP 128/66
[2021-02-05 07:00] VITALS: BP 142/66
[2021-02-05 11:55] VITALS: BP 138/68
--- NOTE | 2021-02-05 18:28 | NUR ---
PATIENT RESTED IN BED THROUGHOUT SHIFT WITH COMPLAINTS OF FEET AND BACK PAIN THAT WAS TREATED WITH REPOSITIONING AND MEDICATION. PATIENTS DAUGHTER MAILE PARDO CALLED STATING THE PATIENT DOES NOT HAVE ANY ONE AT HOME TO HELP CARE FOR HER AND THE SPOUSE HAS DEMENTIA UNABLE TO HELP CARE FOR THE PATIENT. SPOUSE HAS RECENTLY MOVED IN WITH DAUGHTER.
[2021-02-05 19:21] VITALS: BP 113/68
[2021-02-06 05:23] VITALS: BP 142/67
[2021-02-06 07:00] VITALS: BP 121/69
--- NOTE | 2021-02-06 08:55 | NUR ---
Chart review. Dx fall humerus fx. Cm visited with didi at bedside, she is a & o x 3, pleasant, some forgetfulness. She lives at home with her who has ALZ, he helps care for him. he just cant not cook, or drive anymore. Have kala our bricklayer tender who helps with house work. She is out of town right now. is with daughter sherman. Kids live out of town/state. has cane, walker and wheelchair. shower bench. only 1 fall in year. rehab in the past. had covid in the past. had the covid and flu vaccine. think i might need some rehab before i can help shaquille again.
[2021-02-06 11:00] VITALS: BP 125/59
--- NOTE | 2021-02-06 14:44 | NUR ---
PER DR DESAI, APPROPRIATE DISCHARGE PLAN IS TO [facility]. THANK YOU FOR THIS REFERRAL.
[2021-02-06 16:00] VITALS: BP 125/59
[2021-02-06 21:05] VITALS: BP 135/61
--- NOTE | 2021-02-07 05:00 | NUR ---
RECEIVED CARE OF THIS PATIENT AT 1900. PATIENT ALERT AND ORIENTED X4. REMAINS ON BEDREST AT THIS TIME. R ARM IN A SLING. HAS STITCHES UNDER LOWER LIP. C/O PAIN, MED GIVEN. SLEPT MOST OF NIGHT.
[2021-02-07 06:22] LABS: ABSOLUTE NEUTROPHILS 5.1 thou/uL (1.4-8.2); BASOPHILS 0.9 % (0.0-2.0); EOSINOPHILS 3.2 % (0.0-3.0); HEMATOCRIT 33.6 % (37.0-47.0); LYMPHOCYTES 17.8 % (24.0-44.0); MCH 28.6 pg (26.0-34.0); MCHC 32.7 g/dL (28.0-37.0); MCV 87.6 fL (80.0-100.0); MONOCYTES 13.4 % (1.0-8.0); PLATELET COUNT 245 thou/uL (150-400); POLYS 64.7 % (36.0-66.0); RBC 3.84 mil/uL (4.20-5.00); RDW 15.4 % (10.5-14.5); WBC 7.9 thou/uL (4.0-11.0)
[2021-02-07 06:31] LABS: CALCIUM 8.9 mg/dL (8.5-10.1); CREATININE 0.9 mg/dL (0.6-1.0); MAGNESIUM 1.9 mg/dL (1.8-2.4); POTASSIUM 3.3 mmol/L (3.5-5.1)
[2021-02-07 07:42] VITALS: BP 119/59
--- NOTE | 2021-02-07 09:22 | NUR ---
[facility] has no open beds. Skilled Referral sent to [facility]. Will cont following as needed for dc.
--- NOTE | 2021-02-07 10:41 | NUR ---
ASSUMED CARE OF PT AT 0700 THIS MORNING. PT IS A/OX4. SLING ON RT ARM. TELE SHOWING SR WITH SA. STITCHES ON LOWER LIP WITH MILD SWELLING. ASSESSMENTS NOTED IN CHART AND OTHERWISE UNREMARKABLE. FALL PRECAUTIONS ARE IN PLACE. CALL LIGHT AND OTHER NEEDS ARE IN REACH. MEDS AND TX GIVEN NEEDED AND SCHEDULED. PURE WIC IN PLACE. WILL MONITOR PT AND NOTE ANY CHANGES.
[2021-02-07 11:07] VITALS: BP 119/59
--- NOTE | 2021-02-07 11:28 | NUR ---
[facility] accepted for skilled rehab, no bed today. They will have at bed tomorrow to dc to skilled rehab. Cc requested. spoke with daughter sherman and she wants referral sent [facility]. Will still need to dc tomorrow.
[2021-02-07 12:10] VITALS: BP 151/59
[2021-02-07 15:24] VITALS: BP 127/59
[2021-02-07 21:01] VITALS: BP 133/57
--- NOTE | 2021-02-08 06:17 | NUR ---
RECEIVED CARE OF THIS PATIENT AT 1900. PATIENT ALERT AND ORIENTED X4. REMAINS ON BEDREST. PURWICK IN PLACE. SLING ON R ARM. C/O PAIN, MED GIVEN. SLEPT MOST OF NIGHT.
[2021-02-08 06:43] LABS: HEMATOCRIT 34.4 % (37.0-47.0); MCH 28.2 pg (26.0-34.0); MCHC 32.1 g/dL (28.0-37.0); MCV 88.1 fL (80.0-100.0); RBC 3.9 mil/uL (4.20-5.00); RDW 15.5 % (10.5-14.5); WBC 7.7 thou/uL (4.0-11.0)
[2021-02-08 07:06] LABS: CREATININE 0.9 mg/dL (0.6-1.0); MAGNESIUM 1.8 mg/dL (1.8-2.4); POTASSIUM 3.3 mmol/L (3.5-5.1)
[2021-02-08 08:23] VITALS: BP 131/53
--- NOTE | 2021-02-08 11:04 | NUR ---
RE-ASSUMED CARE OF PT AT 0700 THIS MORNING. PT HAD NO CHANGE SINCE REPORT GIVEN LAST NIGHT. ASSESSMENTS NOTED ON CHART AND OTHERWISE UNREMARKABLE. FALL PRECAUTIONS ARE IN PLACE. PT CAN ABULATE WITH X ASST. CALL LIGHT AND OTHER NEEDS ARE IN REACH. CASE MANAGEMENT STATED PT IS ABLE TO DISCHARGE TO REHAB. MEDS AND TX GIVEN NEEDED AND SCHEDULED, WILL MONITOR AND NOTE ANY CHANGES.
[2021-02-08] MEDS ORDERED: IPRAT-ALBUT 0.5-3 ML INH (13:00)
[2021-02-08] MEDS ORDERED: BAYER CHEWABLE81 MG PO (13:00)
[2021-02-08] MEDS ORDERED: MIRALAX17 GM PO (13:00)
[2021-02-08] MEDS ORDERED: NEURONTIN 300M300 M2 PO (13:00)
--- NOTE | 2021-02-08 13:06 | NUR ---
Pt dcing to snf at [facility] today. They have arranged a 3pm w/c van transport. Pt updated at bedside. Nursing is charging her phone. She will call her dtr Roxi to confirm once she gets to the facility. Roxi had friends drop off suitcase with clothing at the SNF this morning. They are checking to see if her phone devulcanizer charger is included. Pt is agreeable to snf. Chart copy ready to be sent with the pt. Final orders in progress per the attending and will be faxed by cm. NASH NOW requested by the facility and is in progress. Pt to be skilled for therapy.
[2021-02-08] MEDS ORDERED: LACTULOSE PO (13:08)
[2021-02-08 15:49] VITALS: BP 131/53
== END 2021-02-08 15:45 | DRG 563 ==
LOC: ER 11:37 → EROBS 17:01 → 4S 17:01
PROVIDERS: Emergency Medicine; Internal Medicine; Nurse Practitioner; Student in an Organized Health Care Education/Training Program; ADMIT Surgery; ATTEND Hospitalist
PROC: 0CQ1XZZ Repair Lower Lip, External Approach (ICD-10-PCS; principal; 2021-02-02)
DX: S42.211A Unspecified displaced fracture of surgical neck of right humerus, initial encounter for closed fracture (principal); M62.82 Rhabdomyolysis; D72.829 Elevated white blood cell count, unspecified; I73.9 Peripheral vascular disease, unspecified; I10 Essential (primary) hypertension; E78.5 Hyperlipidemia, unspecified; F32.9 Major depressive disorder, single episode, unspecified; F41.9 Anxiety disorder, unspecified; I25.10 Atherosclerotic heart disease of native coronary artery without angina pectoris; G62.9 Polyneuropathy, unspecified; D64.9 Anemia, unspecified; B96.89 Other specified bacterial agents as the cause of diseases classified elsewhere; N30.90 Cystitis, unspecified without hematuria; K59.00 Constipation, unspecified; Z20.822 Contact with and (suspected) exposure to COVID-19; J44.9 Chronic obstructive pulmonary disease, unspecified; E87.6 Hypokalemia; Z86.16 Personal history of COVID-19; Z72.0 Tobacco use; Z85.41 Personal history of malignant neoplasm of cervix uteri; Z90.710 Acquired absence of both cervix and uterus; Z98.42 Cataract extraction status, left eye; Z98.41 Cataract extraction status, right eye; Z95.2 Presence of prosthetic heart valve; Z88.6 Allergy status to analgesic agent; Z95.820 Peripheral vascular angioplasty status with implants and grafts; Z71.6 Tobacco abuse counseling; Z79.82 Long term (current) use of aspirin; Z79.899 Other long term (current) drug therapy; Z23 Encounter for immunization; W18.39XA Other fall on same level, initial encounter; Y93.89 Activity, other specified; Y92.89 Other specified places as the place of occurrence of the external cause; Y99.8 Other external cause status; Z66 Do not resuscitate
CPT/HCPCS: 10100

== ENCOUNTER → 2021-03-27 | Outpatient (CLI) | payer OTHER ==
[~2021-03-27] MED LIST changes: +BAYER CHEWABLE81 MG PO; +LACTULOSE PO; +MIRALAX17 GM PO; +NEURONTIN 300M300 M2 PO; +NORCO5 PO
== END ==
LOC: SJCVCIMAG 03-22 13:15
PROVIDERS: ATTEND Nuclear Medicine Nuclear Cardiology
DX: I70.203 Unspecified atherosclerosis of native arteries of extremities, bilateral legs (principal); I70.8 Atherosclerosis of other arteries; E78.00 Pure hypercholesterolemia, unspecified; I10 Essential (primary) hypertension; Z95.4 Presence of other heart-valve replacement; Z95.828 Presence of other vascular implants and grafts; Z82.49 Family history of ischemic heart disease and other diseases of the circulatory system; Z87.891 Personal history of nicotine dependence; Z88.5 Allergy status to narcotic agent; Z88.8 Allergy status to other drugs, medicaments and biological substances; Z79.899 Other long term (current) drug therapy

== ENCOUNTER → 2021-03-29 | Outpatient (CLI) | payer OTHER | LOC: SJCVC 13:55 | PROVIDERS: ATTEND Internal Medicine Cardiovascular Disease | DX: R94.31 Abnormal electrocardiogram [ECG] [EKG] (principal); I73.9 Peripheral vascular disease, unspecified; I10 Essential (primary) hypertension; E78.00 Pure hypercholesterolemia, unspecified; I77.9 Disorder of arteries and arterioles, unspecified; F17.201 Nicotine dependence, unspecified, in remission; Z95.2 Presence of prosthetic heart valve; Z82.49 Family history of ischemic heart disease and other diseases of the circulatory system; Z88.8 Allergy status to other drugs, medicaments and biological substances; Z79.899 Other long term (current) drug therapy ==

== ENCOUNTER → 2021-04-10 | Outpatient (CLI) | payer OTHER | LOC: HYPER 12:52 | PROVIDERS: ATTEND Emergency Medicine | DX: L97.522 Non-pressure chronic ulcer of other part of left foot with fat layer exposed (principal); L84 Corns and callosities; I73.9 Peripheral vascular disease, unspecified; R60.9 Edema, unspecified; G60.3 Idiopathic progressive neuropathy; I10 Essential (primary) hypertension; E78.5 Hyperlipidemia, unspecified; H26.9 Unspecified cataract; G47.00 Insomnia, unspecified; Z85.41 Personal history of malignant neoplasm of cervix uteri; Z87.891 Personal history of nicotine dependence ==